=== PATIENT | female | born 2000 | race Hispanic/Latino ===

== ENCOUNTER 2019-12-19 17:21 | Observation (INO) | payer OTHER ==
[~2019-12-19] VITALS: Ht 150 cm; Wt 75.3 kg
[2019-12-19 17:54] LABS: APPEARANCE,URINE Clear (CLEAR); BILIRUBIN,URINE Negative (NEGATIVE); COLOR,URINE Yellow (YELLOW); GLUCOSE, URINE (UA) Negative (NEGATIVE); KETONES,URINE Negative (NEGATIVE); LEUKOCYTE ESTERASE ,URINE Moderate (NEGATIVE); NITRATE,URINE Negative (NEGATIVE); OCCULT BLOOD,URINE Negative (NEGATIVE); PH,URINE 7.5 (5.0-8.0); PROTEIN,URINE Negative (NEGATIVE)
[2019-12-19] MEDS ORDERED: LACTATED RINGERS 1000ML 1,000 ML IV PRN (18:18)
[2019-12-19 18:21] LABS: BACTERIA,URINE Rare /HPF (None Seen); SQUAMOUS EPITHELIAL CELL,UR Few /HPF (0-2)
[2019-12-19 18:38] LABS: HEMATOCRIT 33.1 % (36-48); MEAN CORPUSCULAR HGB CONC 30.5 g/dL (32.0-36.0); MEAN CORPUSCULAR VOLUME 72.1 fL (80-100); PLATELET COUNT (AUTO) 287 K/uL (130-400); RED BLOOD CELL COUNT(AUTO) 4.59 MIL/uL (4.00-5.50); RED CELL DISTRIBUTION WIDTH 16.2 % (11.0-15.5); WHITE BLOOD COUNT (AUTO) 10.9 K/uL (4.8-10.8)
[2019-12-19 18:49] LABS: CREATININE 0.5 mg/dL (0.5-1.5); POTASSIUM 3.6 mmol/L (3.5-5.1)
[2019-12-19 18:52] LABS: INR 0.91 (0.85-1.15); PARTIAL THROMBOPLASTIN TIME 27.5 SEC (26.3-35.5); PROTHROMBIN TIME 9.6 SEC (9.6-11.6)
[2019-12-19 18:54] LABS: ALBUMIN 2.8 g/dL (3.5-5.0); BILIRUBIN,TOTAL 0.1 mg/dL (0.2-1.0); TOTAL PROTEIN, SERUM 7.4 g/dL (6.0-8.3)
[2019-12-19 20:17] LABS: AMPHET/METH SCREEN,URINE NEGATIVE (NEGATIVE); BARBITURATE SCREEN, URINE NEGATIVE (NEGATIVE); BENZODIAZEPINES SCREEN,URINE NEGATIVE (NEGATIVE); CANNABINOID SCREEN,URINE NEGATIVE (NEGATIVE); COCAINE SCREEN,URINE NEGATIVE (NEGATIVE); OPIATE SCREEN,URINE NEGATIVE (NEGATIVE); PHENCYCLIDINE SCREEN,URINE NEGATIVE (NEGATIVE)
[2019-12-19] MEDS ORDERED: MAGNESIUM HYDROXIDE 30 ML/UDCUP PO SCH (22:15)
[2019-12-20 07:33] LABS: RAPID PLASMA REAGIN NONREACTIVE (NONREACTIVE)
[2019-12-23 10:11] LABS: HEPATITIS Bs ANTIGEN SCREEN P Negative (Negative)
== END 2019-12-19 23:45 | disposition home or self-care (01) ==
LOC: EDH 17:21 → LDH 17:22
PROVIDERS: ADMIT Specialist; ATTEND Specialist
DX: O62.9 Abnormality of forces of labor, unspecified (principal); Z3A.39 39 weeks gestation of pregnancy
CPT/HCPCS: 36415; 76705; 76805; 80053; 80305; 81001; 84550; 85027; 85384; 85610; 85730; 86592; 86701; 86850; 86900; 86901; 87340 ×2; 87390; 99284; G0378 ×6; 96360; 96361

== ENCOUNTER 2019-12-26 05:08 | Inpatient (IN) | payer OTHER ==
[~2019-12-26] VITALS: Ht 144.8 cm; Wt 80.7 kg
[2019-12-26] MEDS ORDERED: CEFAZOLIN SODIUM 1 GM VIAL ONE (05:55)
[2019-12-26 06:11] LABS: HEMATOCRIT 33.9 % (36-48); MEAN CORPUSCULAR HGB CONC 30.7 g/dL (32.0-36.0); MEAN CORPUSCULAR VOLUME 71.7 fL (80-100); PLATELET COUNT (AUTO) 307 K/uL (130-400); RED BLOOD CELL COUNT(AUTO) 4.73 MIL/uL (4.00-5.50); RED CELL DISTRIBUTION WIDTH 16.3 % (11.0-15.5); WHITE BLOOD COUNT (AUTO) 11.5 K/uL (4.8-10.8)
[2019-12-26] MEDS ORDERED: CEFAZOLIN SODIUM 1 GM VIAL IVP PRN (06:15)
[2019-12-26 06:17] LABS: APPEARANCE,URINE Clear (CLEAR); BILIRUBIN,URINE Negative (NEGATIVE); COLOR,URINE Yellow (YELLOW); GLUCOSE, URINE (UA) Negative (NEGATIVE); KETONES,URINE Trace mg/dL (NEGATIVE); LEUKOCYTE ESTERASE ,URINE Trace (NEGATIVE); NITRATE,URINE Negative (NEGATIVE); OCCULT BLOOD,URINE Negative (NEGATIVE); PH,URINE 7.5 (5.0-8.0); PROTEIN,URINE Negative (NEGATIVE)
[2019-12-26] MEDS ORDERED: LACTATED RINGERS 1000ML 1,000 ML IV ONE (06:19)
[2019-12-26 06:21] LABS: AMPHET/METH SCREEN,URINE NEGATIVE (NEGATIVE); BARBITURATE SCREEN, URINE NEGATIVE (NEGATIVE); BENZODIAZEPINES SCREEN,URINE NEGATIVE (NEGATIVE); CANNABINOID SCREEN,URINE NEGATIVE (NEGATIVE); COCAINE SCREEN,URINE NEGATIVE (NEGATIVE); OPIATE SCREEN,URINE NEGATIVE (NEGATIVE); PHENCYCLIDINE SCREEN,URINE NEGATIVE (NEGATIVE)
[2019-12-26] MEDS ORDERED: DURAMORPH PF1 MG/ML 10ML AMP IV ONE (06:24)
[2019-12-26] MEDS ORDERED: OXYTOCIN-LR 20 UNITS/1000 ML 2,000 ML IV ONE (06:31)
[2019-12-26 06:36] LABS: BACTERIA,URINE None Seen /HPF (None Seen); RBC,URINE 0-1 /HPF (0-1); SQUAMOUS EPITHELIAL CELL,UR Few /HPF (0-2); WBC,URINE 0-1 /HPF (0-1)
[2019-12-26] MEDS ORDERED: SODIUM CHLORIDE 0.9% 10 ML VIAL ONE (06:59)
[2019-12-26] MEDS ORDERED: PHENYLEPHRINE HCL 10 MG/ML 1ML VIAL IV ONE (06:59)
[2019-12-26] MEDS ORDERED: ONDANSETRON HCL 4 MG/2 ML VIAL ONE (07:01)
[2019-12-26] MEDS ORDERED: GLYCOPYRROLATE 1 MG/5 ML SYRINGE ONE (07:04)
[2019-12-26] MEDS ORDERED: PROMETHAZINE HCL 25 MG/ML 1ML AMPULE IM PRN (07:30)
[2019-12-26] MEDS ORDERED: OXYTOCIN-LR 20 UNITS/1000 ML 1,000 ML IV PRN (07:30)
[2019-12-26] MEDS ORDERED: MEPERIDINE-PF 75 MG/ML SYG IM PRN (07:30)
[2019-12-26] MEDS ORDERED: SODIUM CHLORIDE 0.9% 10 ML VIAL IVP PRN (07:30)
[2019-12-26] MEDS ORDERED: DEXTROSE 5 %-0.45 % NACL 1,000 ML IV PRN (07:30)
[2019-12-26 08:54] VITALS: BP 115/66
[2019-12-26] MEDS ORDERED: EPHEDRINE SULFATE 50 MG/ML AMPULE IVP PRN (11:00)
[2019-12-26] MEDS ORDERED: NALOXONE HCL 0.4 MG/1 ML ML IVP PRN ×3 (11:00)
[2019-12-26] MEDS ORDERED: DiphenhydrAMINE HCL 50 MG/ML VIAL IVP PRN (11:00)
[2019-12-26] MEDS: ONDANSETRON HCL 4 MG/2 ML VIAL IVP PRN ×2 (11:11→16:24)
[2019-12-26 11:19] VITALS: BP 102/59
--- NOTE | 2019-12-26 11:19 | NUR ---
IVY IN met with pt and her mother Debbie Conti [phone]. Pt states she lives with her mother and a friend Nessa Montano in [place]. Pt then mentioned she and HERMANN Salmonsus Louis Baltazar (30) live together in [facility] and this is second daughter for couple. 14month old Anne (born in [place]), and RODOLFO Elias. Pt states they will buy car seat before dc and she has not selected a green hide inspector after dc. Pt states she only saw an OB in [facility] in April 2019 and had no care the rest of . Pt denies hx of abuse, substance abuse, mental health, domestic violence, legal or CPS issues. SW called local CPS office and pt has no hx with CPS or open cases. Addendum: 12/26/19 at 1136 by IGNACIA IRAHETA Amended: Links added.
[2019-12-26] MEDS ORDERED: PREN-68 PO (11:40)
[2019-12-26 16:22] VITALS: BP 114/76
[2019-12-26 19:59] VITALS: BP 108/75
[2019-12-26] MEDS: DIPH,PERTUSS(ACELL),TET VAC/PF 0.5 ML VIAL IM SCH (21:47)
[2019-12-26] MEDS: MEASLES/MUMPS/RUBELLA VACCINE, LIVE 0.5 ML/VIAL SQ SCH (21:59)
[2019-12-26 23:40] VITALS: BP 99/51
[2019-12-27 03:40] VITALS: BP 90/51
[2019-12-27] MEDS: MEASLES/MUMPS/RUBELLA VACCINE, LIVE 0.5 ML/VIAL SQ SCH ×2 (03:58→20:34)
[2019-12-27] MEDS: DIPH,PERTUSS(ACELL),TET VAC/PF 0.5 ML VIAL IM SCH ×2 (03:58→20:34)
--- NOTE | 2019-12-27 06:25 | NUR ---
PRADEEP COUGHLIN PT. INST TO CALL FOR ASSIST BEFORE GETTING OUT OF BED, VERBALIZED UNDERSTANDING. Addendum: 12/27/19 at 0637 by NIKOS MOTTA RN RN Amended: Links added.
[2019-12-27 06:26] LABS: HEMATOCRIT 26.2 % (36-48); MEAN CORPUSCULAR HEMOGLOBIN 21.9 pg (27.0-33.0); MEAN CORPUSCULAR HGB CONC 30.2 g/dL (32.0-36.0); MEAN CORPUSCULAR VOLUME 72.6 fL (80-100); PLATELET COUNT (AUTO) 257 K/uL (130-400); RED BLOOD CELL COUNT(AUTO) 3.61 MIL/uL (4.00-5.50); RED CELL DISTRIBUTION WIDTH 16.1 % (11.0-15.5); WHITE BLOOD COUNT (AUTO) 11.7 K/uL (4.8-10.8)
[2019-12-27 07:27] VITALS: BP 94/49
[2019-12-27] MEDS: IBUPROFEN 800 MG TAB PO SCH ×3 (07:34→23:26)
[2019-12-27] MEDS ORDERED: BISACODYL 10 MG SUPP.RECT RC PRN (08:45)
[2019-12-27] MEDS ORDERED: ACETAMINOPHEN EXTRA STRENGTH 500 MG TABLET PO PRN (08:45)
[2019-12-27] MEDS ORDERED: HYDROCODONE/ACETAMINOPHEN 5/325 MG TAB PO PRN (08:45)
[2019-12-27] MEDS ORDERED: ACETAMINOPHEN-CODEINE 300/30MG TAB PO PRN (08:45)
[2019-12-27] MEDS: DOCUSATE SODIUM 100 MG CAP PO SCH ×2 (08:54→20:52)
[2019-12-27 11:23] VITALS: BP 95/51
[2019-12-27] MEDS: SIMETHICONE 80 MG TAB.CHEW PO PRN ×3 (15:18→20:52)
[2019-12-27 16:37] VITALS: BP 97/54
[2019-12-27 19:40] VITALS: BP 98/59
[2019-12-27 23:44] VITALS: BP 90/49
[2019-12-28 03:19] VITALS: BP 105/61
[2019-12-28] MEDS: IBUPROFEN 800 MG TAB PO SCH (07:15)
[2019-12-28 07:34] VITALS: BP 92/63
[2019-12-28] MEDS: DOCUSATE SODIUM 100 MG CAP PO SCH (08:31)
[2019-12-28] MEDS: SIMETHICONE 80 MG TAB.CHEW PO PRN (08:31)
--- NOTE | 2019-12-28 11:30 | NUR ---
David AGUIRRE CNM ROUNDED AND DISCHARGED PATIENT TO HOME. PATIENT TO FOLLOW UP WITH DR. BROCK SCHEDULED.
[2019-12-28 11:50] VITALS: BP 94/54
--- NOTE | 2019-12-28 13:45 | NUR ---
PATIENT WAS GIVEN DISCHARGE INSTRUCTIONS AND SCRIPT FOR HOME PAIN MANAGEMENT ISSUED AND INSTRUCTED ON DOSAGE AND FREQUENCY OF MEDS. PATIENT DENIES PAIN AT THIS TIME. INCISION WITH CONCHA OPEN TO AIR AND INCISIONAL CARE REINFORCED AT THIS TIME.
--- NOTE | 2019-12-28 14:00 | NUR ---
PATIENT WAS TAKEN VIA W/C TO FAMILY VEHICLE CARRYING BABY IN ARMS. PATIENT AND BABY DISCHARGED TO SPOUSE IN STABLE CONDITION. Addendum: 12/28/19 at 1410 by BENI DOWLING RN CHARTED IN ERROR ON WRONG PATIENT
--- NOTE | 2019-12-28 14:19 | NUR ---
PATIENT WAS TAKEN VIA W/C CARRYING BABY IN ARMS TO FAMILY VEHICLE AND WAS DISCHARGED TO HER MOTHER. PATIENT AND BABY STABLE.
== END 2019-12-28 14:19 | disposition home or self-care (01) | DRG 788 ==
LOC: EDH 05:08 → LDH 05:09 → OBSVTOIN 05:09 → WSH 08:50
PROVIDERS: ADMIT Specialist; ATTEND Specialist
PROC: 3E0234Z Introduction of Serum, Toxoid and Vaccine into Muscle, Percutaneous Approach (ICD-10-PCS; 2019-12-26)
PROC: 3E0134Z Introduction of Serum, Toxoid and Vaccine into Subcutaneous Tissue, Percutaneous Approach (ICD-10-PCS; 2019-12-26)
PROC: 10D00Z1 Extraction of Products of Conception, Low, Open Approach (ICD-10-PCS; principal; 2019-12-26 06:45)
DX: O34.211 Maternal care for low transverse scar from previous cesarean delivery (principal); Z3A.38 38 weeks gestation of pregnancy; Z37.0 Single live birth; Z23 Encounter for immunization
CPT/HCPCS: 36415; 59510; 80305; 81001; 85027; 86762; 86850; 86900; 86901; 90707; 90715; A4344; G0378; J0690; J2274; J2370; J2405; J2590; J3490; J7120

== ENCOUNTER 2020-01-06 20:18 | Inpatient (IN) | payer MEDICAID, OTHER ==
[~2020-01-06] VITALS: Ht 152.4 cm; Wt 70.8 kg
[~2020-01-06 20:18] MED LIST: PREN-68 PO
[2020-01-06 21:10] LABS: BASOPHILS % (AUTO) 0.3 % (0.0-5.0); EOSINOPHILS % (AUTO) 0.3 % (0.0-8.0); HEMATOCRIT 28.2 % (36-48); LYMPHOCYTES % (AUTO) 16.4 % (21.0-51.0); MEAN CORPUSCULAR HEMOGLOBIN 22.2 pg (27.0-33.0); MEAN CORPUSCULAR HGB CONC 30.5 g/dL (32.0-36.0); MEAN CORPUSCULAR VOLUME 72.7 fL (80-100); MONOCYTES % (AUTO) 4.2 % (3.0-13.0); PLATELET COUNT (AUTO) 601 K/uL (130-400); RED BLOOD CELL COUNT(AUTO) 3.88 MIL/uL (4.00-5.50); WHITE BLOOD COUNT (AUTO) 24.6 K/uL (4.8-10.8)
[2020-01-06] MEDS ORDERED: ONDANSETRON HCL 4 MG/2 ML VIAL ONE (21:13)
[2020-01-06] MEDS ORDERED: MORPHINE SULFATE 2 MG/ML 1ML SYG ONE (21:14)
[2020-01-06 21:37] LABS: POTASSIUM 3.4 mmol/L (3.5-5.1)
[2020-01-06 21:43] LABS: INR 0.96 (0.85-1.15); PARTIAL THROMBOPLASTIN TIME 25.7 SEC (26.3-35.5); PROTHROMBIN TIME 10.4 SEC (9.6-11.6)
[2020-01-06 21:44] LABS: B-TYPE NATRIURETIC PEPTIDE < 5 pg/mL (0-100)
[2020-01-06 21:55] LABS: ALBUMIN 2.9 g/dL (3.5-5.0); BILIRUBIN,TOTAL 0.1 mg/dL (0.2-1.0); TOTAL PROTEIN, SERUM 7.3 g/dL (6.0-8.3)
[2020-01-06] MEDS ORDERED: IOHEXOL-350 75 ML VIAL IV ONE (21:55)
[2020-01-06] MEDS ORDERED: ZOSYN 3.375GM+NS 50ML 50 ML IV ONE (22:44)
[2020-01-06] MEDS ORDERED: SODIUM CHLORIDE 0.9% 1000ML 1,000 ML IV ONE (23:21)
[2020-01-07] MEDS ORDERED: SODIUM CHLORIDE 0.9% 250 ML IV ONE (01:05)
[2020-01-07] MEDS ORDERED: CLINDAMYCIN 900 MG/D5% WATER 50 ML IV ONE (02:00)
[2020-01-07] MEDS ORDERED: LACTATED RINGERS 1000ML 1,000 ML IV ONE ×2 (02:01→02:14)
[2020-01-07] MEDS ORDERED: MEPERIDINE-PF 50 MG/ML SYG ONE (02:01)
[2020-01-07] MEDS ORDERED: METHYLERGONOVINE MALEATE 0.2 MG/1 ML ML ONE (02:14)
[2020-01-07] MEDS ORDERED: TRANEXAMIC ACID 1000MG/10ML ONE (02:14)
[2020-01-07 03:20] VITALS: BP 109/59
[2020-01-07] MEDS ORDERED: MEPERIDINE-PF 50 MG/ML SYG IM PRN ×2 (03:45→04:00)
[2020-01-07] MEDS ORDERED: PROMETHAZINE HCL 25 MG/ML 1ML AMPULE IM PRN ×2 (03:45→04:00)
[2020-01-07] MEDS ORDERED: ACETAMINOPHEN EXTRA STRENGTH 500 MG TABLET PO PRN ×2 (03:45→04:00)
[2020-01-07] MEDS ORDERED: PHARMACY COMMUNICATION MISC SCH (03:45)
[2020-01-07] MEDS ORDERED: IBUPROFEN 800 MG TAB PO PRN (03:45)
[2020-01-07] MEDS ORDERED: LACTATED RINGERS 1000ML 1,000 ML IV SCH (04:00)
[2020-01-07] MEDS ORDERED: GENTAMICIN SULFATE 120 MG in SODIUM CHLORIDE 0.9% 100 ML IV SCH (04:00)
[2020-01-07 04:58] LABS: APPEARANCE,URINE Clear (CLEAR); BILIRUBIN,URINE Negative (NEGATIVE); COLOR,URINE Yellow (YELLOW); GLUCOSE, URINE (UA) Negative (NEGATIVE); KETONES,URINE Negative (NEGATIVE); LEUKOCYTE ESTERASE ,URINE Negative (NEGATIVE); NITRATE,URINE Negative (NEGATIVE); OCCULT BLOOD,URINE Moderate (NEGATIVE); PROTEIN,URINE Negative (NEGATIVE); UROBILINOGEN,URINE 0.2 mg/dL (0.2-1.0)
[2020-01-07 05:07] LABS: RBC,URINE 26-50 /HPF (0-1); WBC,URINE 0-1 /HPF (0-1)
[2020-01-07 05:08] LABS: BACTERIA,URINE Rare /HPF (None Seen)
[2020-01-07] MEDS ORDERED: IBUP-2077 PO (06:12)
[2020-01-07 06:31] LABS: HEMATOCRIT 24.2 % (36-48); MEAN CORPUSCULAR HEMOGLOBIN 23.2 pg (27.0-33.0); MEAN CORPUSCULAR HGB CONC 31.4 g/dL (32.0-36.0); MEAN CORPUSCULAR VOLUME 73.8 fL (80-100); PLATELET COUNT (AUTO) 383 K/uL (130-400); RED BLOOD CELL COUNT(AUTO) 3.28 MIL/uL (4.00-5.50); RED CELL DISTRIBUTION WIDTH 16.8 % (11.0-15.5); WHITE BLOOD COUNT (AUTO) 15.1 K/uL (4.8-10.8)
[2020-01-07 06:44] LABS: ALBUMIN 2.4 g/dL (3.5-5.0); BILIRUBIN,TOTAL 0.1 mg/dL (0.2-1.0); CREATININE 0.6 mg/dL (0.5-1.5); POTASSIUM 3.8 mmol/L (3.5-5.1)
[2020-01-07 07:40] VITALS: BP 96/52
--- NOTE | 2020-01-07 08:30 | NUR ---
QBL QBL IS 7MLS. PT PREVIOUSLY VOIDED AND NO CLOTS NOTED.
[2020-01-07] MEDS ORDERED: CLINDAMYCIN 900 MG/D5% WATER 50 ML IV SCH (10:10)
--- NOTE | 2020-01-07 10:10 | NUR ---
QBL QBL IS 6MLS. NO CLOTS PRESENT AT THIS TIME.
[2020-01-07] MEDS: CLINDAMYCIN 900 MG/D5% WATER 50 ML IV SCH ×2 (10:37→17:33)
[2020-01-07 11:15] VITALS: BP 90/47
[2020-01-07] MEDS ORDERED: GENTAMICIN SULFATE 80 MG in SODIUM CHLORIDE 0.9% 100 ML IV SCH (12:00)
[2020-01-07] MEDS: GENTAMICIN 80 MG/NS 100 ML PB 100 ML IV SCH ×2 (13:06→20:18)
[2020-01-07] MEDS: LACTATED RINGERS 1000ML 1,000 ML IV SCH ×3 (13:07→23:59)
[2020-01-07] MEDS ORDERED: GENTAMICIN 80 MG/NS 100 ML PB 100 ML IV SCH (15:00)
--- NOTE | 2020-01-07 15:40 | NUR ---
ROUNDING DR. COREY AT BEDSIDE TO ASSESS AND TALK TO PT. POC DISCUSSED TO CONTINUE TO MONITOR PT'S BLEEDING OVER NIGHT. PT VERBALIZED UNDERSTANDING.
[2020-01-07 16:34] VITALS: BP 93/55
--- NOTE | 2020-01-07 17:00 | NUR ---
PT ACTIVITY PT AMBULATING IN HALLWAY, INSTRUCTED BY DR. COREY, AND TOLERATING WELL. NO COMPLAINTS OF PAIN OR DIZZINESS AT THIS TIME.
--- NOTE | 2020-01-07 17:26 | NUR ---
CM NOTE MEET WITH PATIENT IN ROOM. PER PATIENT, LIVES WITH FRIEND AND HER FRIENDS KIDS (1 MINOR/1 ADULT), IS INDEPENDENT WITH ADLS, NO USE OF DME, NO HH OR PROVIDER SERVICES, AND FEELS SAFE TO RETURN HOME AFTER HOSPITAL DISCHARGE. Addendum: 01/07/20 at 1728 by ASHA MARTÍNEZ RN CM Amended: Links added.
--- NOTE | 2020-01-07 17:30 | NUR ---
CONCHA/QBL 2 CONCHA REMOVED FROM LEFT SIDE OF INCISION PER DR. COREY'S ORDERS. PT JUST CHANGED PAD AND HAD QBL OF 7 MLS. PT STATED HAD PASSED BLOOD BLOT IN BATHROOM. GOLF BALL-SIZED CLOT NOTED. PT DENIED DIZZINESS AT THIS TIME.
[2020-01-07 19:44] VITALS: BP 97/56
--- NOTE | 2020-01-07 20:00 | NUR ---
Activity: Patient ambulating in the hallway for 10 minutes tolerated it well. was back to her room voided with royal colored urine noted with small blood clots a quarter size. Plan of care discussed with patient verbalizes understanding.
[2020-01-07] MEDS: IBUPROFEN 800 MG TAB PO PRN (20:18)
[2020-01-07 23:49] VITALS: BP 99/58
[2020-01-08] MEDS: CLINDAMYCIN 900 MG/D5% WATER 50 ML IV SCH ×2 (01:58→08:48)
--- NOTE | 2020-01-08 02:00 | NUR ---
Patient urine; Patient urine noted with small amount of bloody tissues very small clots smaller like a dime.
[2020-01-08 03:54] VITALS: BP 91/57
[2020-01-08] MEDS: GENTAMICIN 80 MG/NS 100 ML PB 100 ML IV SCH (03:57)
[2020-01-08 05:55] LABS: BASOPHILS % (AUTO) 0.6 % (0.0-5.0); EOSINOPHILS % (AUTO) 0.6 % (0.0-8.0); MEAN CORPUSCULAR HEMOGLOBIN 23.4 pg (27.0-33.0); MEAN CORPUSCULAR HGB CONC 31.2 g/dL (32.0-36.0); MEAN CORPUSCULAR VOLUME 75.1 fL (80-100); MONOCYTES % (AUTO) 6.9 % (3.0-13.0); NEUTROPHILS % (AUTO) 68.5 % (40.0-77.0); PLATELET COUNT (AUTO) 377 K/uL (130-400); RED BLOOD CELL COUNT(AUTO) 3.46 MIL/uL (4.00-5.50); RED CELL DISTRIBUTION WIDTH 17.4 % (11.0-15.5); WHITE BLOOD COUNT (AUTO) 6.9 K/uL (4.8-10.8)
[2020-01-08 07:19] VITALS: BP 102/62
--- NOTE | 2020-01-08 07:40 | NUR ---
ASSESSMENT PT HAD SCANT VAGINAL BLEEDING ON PAD. STATED BLEEDING HAS GOTTEN CRYSTAL CUTTER OVER NIGHT. NO COMPLAINTS AT THIS TIME.
--- NOTE | 2020-01-08 08:50 | NUR ---
ROUNDING DR. COREY AT BEDSIDE TO ASSESS AND TALK TO PT. PT REPORTS IS FEELING BETTER AND BLEEDING IS MAPPER. POC DISCUSSED WITH PT TO BE DISCHARGED HOME. DR. COREY INFORMED PT OF PRESCRIBING METHERGINE PO TO CONTINUE TO TAKE AT HOME AND IMPORTANCE OF FINISHING THE COURSE, AND TO COME BACK TO HOSPITAL IF HEAVY BLEEDING RETURNS AND IS NEEDING TO CHANGE PADS EVERY 20 MINUTES TO AN HOUR. PT VERBALIZED UNDERSTANDING.
[2020-01-08] MEDS: IBUPROFEN 800 MG TAB PO PRN (10:44)
--- NOTE | 2020-01-08 11:00 | NUR ---
DISCHARGE PT LEFT UNIT VIA WHEELCHAIR, ACCOMPANIED BY MOTHER. DENIED PAIN AND HAD NO COMPLAINTS OF HEAVY BLEEDING. PT TRANSPORTED BY PERSONAL VEHICLE.
== END 2020-01-08 12:21 | disposition home or self-care (01) | DRG 776 ==
LOC: EDH 20:18 → EDHIP 20:19 → WSH 01-07 01:52
PROVIDERS: ADMIT Specialist; ATTEND Specialist
PROC: 30233N1 Transfusion of Nonautologous Red Blood Cells into Peripheral Vein, Percutaneous Approach (ICD-10-PCS; principal; 2020-01-06)
DX: O72.1 Other immediate postpartum hemorrhage (principal)
CPT/HCPCS: 36415; 71045; 74177; 76856; 80053; 80170; 81001; 83605; 83880; 84145; 84484; 85025; 85027; 85610; 85730; 86850; 86900; 86901; 86922; 87040; 87077; 87088; 87186; 93005; G0378; J1580; J2175; J2210; J2405; J2543; J3490; J7030; J7120; P9016; Q9967

== ENCOUNTER 2020-01-08 12:21 | Inpatient (IN) | payer OTHER ==
[~2020-01-08] VITALS: Ht 157.5 cm; Wt 68.0 kg
[2020-01-08] VITALS (18 sets, daily range): BP systolic 90–128; BP diastolic 50–65
[~2020-01-08 12:21] MED LIST changes: +IBUP-2077 PO
[2020-01-08] MEDS ORDERED: MISOPROSTOL 200 MCG TABLET ONE (12:24)
[2020-01-08] MEDS ORDERED: TRANEXAMIC ACID 1000MG/10ML ONE ×2 (12:25→12:27)
--- NOTE | 2020-01-08 12:35 | NUR ---
QBL IN ER 123 MLS
[2020-01-08 12:38] LABS: ABG HCO3 17.4 mmol/L (21.0-28.0); ABG OXYGEN SATURATION 98.2 % (95.0-99.0); ABG PCO2 23 mmHg (32-45)
[2020-01-08] MEDS ORDERED: FENTANYL CITRATE PF 50 MCG/1 ML 2ML VIAL ONE ×3 (12:49→15:06)
[2020-01-08 12:52] LABS: BASOPHILS % (AUTO) 0.4 % (0.0-5.0); EOSINOPHILS % (AUTO) 0.3 % (0.0-8.0); HEMATOCRIT 21.3 % (36-48); LYMPHOCYTES % (AUTO) 16.1 % (21.0-51.0); MEAN CORPUSCULAR HEMOGLOBIN 23.8 pg (27.0-33.0); MEAN CORPUSCULAR HGB CONC 31.9 g/dL (32.0-36.0); MEAN CORPUSCULAR VOLUME 74.5 fL (80-100); MONOCYTES % (AUTO) 3.4 % (3.0-13.0); NEUTROPHILS % (AUTO) 78.4 % (40.0-77.0); PLATELET COUNT (AUTO) 355 K/uL (130-400); RED BLOOD CELL COUNT(AUTO) 2.86 MIL/uL (4.00-5.50); RED CELL DISTRIBUTION WIDTH 17.2 % (11.0-15.5); WHITE BLOOD COUNT (AUTO) 7.6 K/uL (4.8-10.8)
[2020-01-08] MEDS ORDERED: PROPOFOL 10 MG/ML 20ML VIAL IV ONE (12:53)
[2020-01-08] MEDS ORDERED: LIDOCAINE PF 2% 5ML ABBOJECT ONE ×2 (12:53→14:44)
[2020-01-08] MEDS ORDERED: ROCURONIUM 10MG/1ML SYR 10 MG/ML ML ONE (12:53)
[2020-01-08] MEDS ORDERED: SUCCINYLCHOLINE CHLORIDE 20 MG/ML 10 ML VIAL ONE (12:53)
[2020-01-08 12:57] LABS: INR 0.99 (0.85-1.15); PARTIAL THROMBOPLASTIN TIME 28.5 SEC (26.3-35.5); PROTHROMBIN TIME 10.7 SEC (9.6-11.6)
[2020-01-08 13:01] LABS: ALBUMIN 2.5 g/dL (3.5-5.0); BILIRUBIN,TOTAL 0.2 mg/dL (0.2-1.0); CREATININE 0.6 mg/dL (0.5-1.5); TOTAL PROTEIN, SERUM 6.1 g/dL (6.0-8.3)
[2020-01-08 13:07] LABS: POTASSIUM 2.9 mmol/L (3.5-5.1)
[2020-01-08] MEDS ORDERED: MIDAZOLAM HCL 1 MG/ML 2ML VIAL ONE (13:08)
--- NOTE | 2020-01-08 13:15 | NUR ---
QBL PRIOR TO OR 157 MLS
[2020-01-08] MEDS ORDERED: PHENYLEPHRINE HCL 10 MG/ML 1ML VIAL IV ONE (13:21)
[2020-01-08] MEDS ORDERED: CEFTRIAXONE SODIUM 1 GM ONE (13:35)
[2020-01-08] MEDS ORDERED: OXYTOCIN 10 USP UNITS/ML ONE (14:02)
[2020-01-08] MEDS ORDERED: MEPERIDINE-PF 25 MG/ML SYG ONE (14:20)
[2020-01-08] MEDS ORDERED: NEOSTIGMINE 5MG/5ML SYR IV ONE (14:26)
[2020-01-08] MEDS ORDERED: GLYCOPYRROLATE 1 MG/5 ML SYRINGE ONE (14:26)
[2020-01-08] MEDS ORDERED: ONDANSETRON HCL 4 MG/2 ML VIAL ONE (14:30)
[2020-01-08] MEDS ORDERED: EPHEDRINE SULFATE 50 MG/ML AMPULE ONE (14:53)
[2020-01-08 14:56] LABS: BASOPHILS % (AUTO) 0.4 % (0.0-5.0); EOSINOPHILS % (AUTO) 0.1 % (0.0-8.0); HEMATOCRIT 30.2 % (36-48); LYMPHOCYTES % (AUTO) 9.3 % (21.0-51.0); MEAN CORPUSCULAR HEMOGLOBIN 26.3 pg (27.0-33.0); MEAN CORPUSCULAR HGB CONC 31.8 g/dL (32.0-36.0); MEAN CORPUSCULAR VOLUME 82.7 fL (80-100); MONOCYTES % (AUTO) 4.8 % (3.0-13.0); NEUTROPHILS % (AUTO) 82.6 % (40.0-77.0); NUCLEATED RED BLOOD CELLS 0.2 % (0.0-0.19); PLATELET COUNT (AUTO) 222 K/uL (130-400); RED BLOOD CELL COUNT(AUTO) 3.65 MIL/uL (4.00-5.50); RED CELL DISTRIBUTION WIDTH 18.7 % (11.0-15.5); WHITE BLOOD COUNT (AUTO) 16.3 K/uL (4.8-10.8)
[2020-01-08 15:09] LABS: BILIRUBIN,TOTAL 0.4 mg/dL (0.2-1.0); TOTAL PROTEIN, SERUM 4.5 g/dL (6.0-8.3)
[2020-01-08] MEDS ORDERED: BISACODYL 10 MG SUPP.RECT RC PRN (15:45)
[2020-01-08] MEDS ORDERED: SIMETHICONE 80 MG TAB.CHEW PO PRN (15:45)
[2020-01-08] MEDS ORDERED: DOCUSATE SODIUM 100 MG CAP PO PRN (15:45)
[2020-01-08] MEDS ORDERED: ONDANSETRON HCL 4 MG/2 ML VIAL IVP PRN (15:45)
[2020-01-08] MEDS ORDERED: MEPERIDINE-PF 75 MG/ML SYG IM PRN (15:45)
[2020-01-08] MEDS ORDERED: PROMETHAZINE HCL 25 MG/ML 1ML AMPULE IM PRN ×2 (15:45)
[2020-01-08 16:17] LABS: CREATININE 0.5 mg/dL (0.5-1.5); POTASSIUM 3.6 mmol/L (3.5-5.1)
[2020-01-08] MEDS ORDERED: MEPERIDINE-PF 100 MG/ML SYG ONE (16:36)
[2020-01-08 16:49] LABS: AMPHET/METH SCREEN,URINE NEGATIVE (NEGATIVE); BARBITURATE SCREEN, URINE NEGATIVE (NEGATIVE); BENZODIAZEPINES SCREEN,URINE POSITIVE (NEGATIVE); CANNABINOID SCREEN,URINE NEGATIVE (NEGATIVE); COCAINE SCREEN,URINE NEGATIVE (NEGATIVE); OPIATE SCREEN,URINE NEGATIVE (NEGATIVE); PHENCYCLIDINE SCREEN,URINE NEGATIVE (NEGATIVE)
[2020-01-08] MEDS: ACETAMINOPHEN-CODEINE 300/30MG TAB PO PRN ×2 (18:52→23:33)
[2020-01-08] MEDS ORDERED: MEPERIDINE-PF 100 MG/ML SYG IM PRN (19:00)
[2020-01-08] MEDS: DEXTROSE 5 %-0.45 % NACL 1,000 ML IV PRN (19:03)
[2020-01-08] MEDS: PHENAZOPYRIDINE HCL 200 MG TABLET PO SCH (21:34)
[2020-01-09 00:35] LABS: HEMATOCRIT 28.2 % (36-48); MEAN CORPUSCULAR HEMOGLOBIN 26.8 pg (27.0-33.0); MEAN CORPUSCULAR HGB CONC 33.7 g/dL (32.0-36.0); MEAN CORPUSCULAR VOLUME 79.4 fL (80-100); PLATELET COUNT (AUTO) 226 K/uL (130-400); RED BLOOD CELL COUNT(AUTO) 3.55 MIL/uL (4.00-5.50); RED CELL DISTRIBUTION WIDTH 18.6 % (11.0-15.5)
[2020-01-09] MEDS: DEXTROSE 5 %-0.45 % NACL 1,000 ML IV PRN ×3 (03:02→18:21)
[2020-01-09 03:34] VITALS: BP 112/68
[2020-01-09] MEDS: ACETAMINOPHEN-CODEINE 300/30MG TAB PO PRN ×3 (05:46→15:37)
--- NOTE | 2020-01-09 06:05 | NUR ---
PT. SAT AT BEDSIDE BY BENY AND DANGLED FOR 7 MINUTES. DENIED DISCOMFORT. NO VAGINAL BLEEDING NOTED AT THIS TIME.
[2020-01-09 07:14] LABS: HEMATOCRIT 23.7 % (36-48); MEAN CORPUSCULAR HGB CONC 34.2 g/dL (32.0-36.0); NUCLEATED RED BLOOD CELLS 0.2 % (0.0-0.19); PLATELET COUNT (AUTO) 227 K/uL (130-400); RED CELL DISTRIBUTION WIDTH 18.6 % (11.0-15.5); WHITE BLOOD COUNT (AUTO) 8.9 K/uL (4.8-10.8)
[2020-01-09 07:41] VITALS: BP 102/52
[2020-01-09] MEDS: PHENAZOPYRIDINE HCL 200 MG TABLET PO SCH ×3 (08:37→21:46)
[2020-01-09] MEDS: CEFTRIAXONE SODIUM 1 GM IV SCH (08:37)
[2020-01-09] MEDS ORDERED: HYDROCODONE/ACETAMINOPHEN 5/325 MG TAB PO PRN (10:30)
[2020-01-09] MEDS ORDERED: GENTAMICIN PROTOCOL PER PHARMACY IV SCH (10:30)
--- NOTE | 2020-01-09 10:45 | NUR ---
chau catheter removed, tip intact, abdominal dressing changed, incision is dry and intact with chantelle, applied abdominal binder, assisted to bedside chair, pt tolerated well. Addendum: 01/09/20 at 1359 by MARQUIS BATES RN Amended: Links added.
[2020-01-09] MEDS: CLINDAMYCIN 900 MG/D5% WATER 50 ML IV SCH ×2 (10:52→18:14)
[2020-01-09 11:40] VITALS: BP 110/55
[2020-01-09] MEDS: IBUPROFEN 800 MG TAB PO SCH ×3 (11:43→23:04)
[2020-01-09 11:49] LABS: APPEARANCE,URINE Clear (CLEAR); BILIRUBIN,URINE Negative (NEGATIVE); COLOR,URINE Dark Yellow (YELLOW); GLUCOSE, URINE (UA) Negative (NEGATIVE); KETONES,URINE Negative (NEGATIVE); LEUKOCYTE ESTERASE ,URINE Negative (NEGATIVE); NITRATE,URINE Positive (NEGATIVE); OCCULT BLOOD,URINE Nonhemolyzed Trace (NEGATIVE); PROTEIN,URINE Negative (NEGATIVE); UROBILINOGEN,URINE 0.2 mg/dL (0.2-1.0)
[2020-01-09 12:16] LABS: BACTERIA,URINE Rare /HPF (None Seen); RBC,URINE 0-1 /HPF (0-1); SQUAMOUS EPITHELIAL CELL,UR Rare /HPF (0-2); WBC,URINE 0-1 /HPF (0-1)
--- NOTE | 2020-01-09 14:45 | NUR ---
CM NOTE MEET WITH PATIENT IN ROOM. PER PATIENT, LIVES WITH FRIEND AND HER FRIENDS KIDS (1 MINOR/1 ADULT), IS INDEPENDENT WITH ADLS, NO USE OF DME, NO HH OR PROVIDER SERVICES, AND FEELS SAFE TO RETURN HOME AFTER HOSPITAL DISCHARGE. READMISSION DUE TO VAGINAL HEMORRHAGE. SELF REFERRAL PACKET GIVEN TO PATIENT, STATES SHE STILL HAS THE LAST ONE I GAVE TO HER FOR PRIOR ADMISSION ON 01/06/20. PATIENT VERBALIZED UNDERSTANDING OF PACKET.
[2020-01-09 15:49] VITALS: BP 103/52
[2020-01-09 19:36] VITALS: BP 100/49
[2020-01-09] MEDS ORDERED: BENZOCAINE/MENTH/CETYLPYRD CL 1 EACH LOZENGE MM PRN (21:45)
[2020-01-10] VITALS (7 sets, daily range): BP systolic 86–110; BP diastolic 47–68
[2020-01-10] MEDS: ACETAMINOPHEN-CODEINE 300/30MG TAB PO PRN (00:37)
[2020-01-10] MEDS: CLINDAMYCIN 900 MG/D5% WATER 50 ML IV SCH ×3 (02:54→18:22)
[2020-01-10] MEDS: DEXTROSE 5 %-0.45 % NACL 1,000 ML IV PRN ×2 (02:57→10:15)
[2020-01-10] MEDS: IBUPROFEN 800 MG TAB PO SCH ×3 (05:00→18:23)
--- NOTE | 2020-01-10 06:42 | NUR ---
Pt denies pain or discomfort at present. Encouraging use of IS; pt complying & reaching 3000ml Addendum: 01/10/20 at 0745 by ROCIO SOLOMON RN RN Amended: Links added.
[2020-01-10] MEDS: CEFTRIAXONE SODIUM 1 GM IV SCH (09:12)
[2020-01-10] MEDS: DOCUSATE SODIUM 100 MG CAP PO PRN ×2 (09:12→20:31)
[2020-01-10] MEDS: PHENAZOPYRIDINE HCL 200 MG TABLET PO SCH ×3 (09:12→20:30)
--- NOTE | 2020-01-10 10:00 | NUR ---
PATIENT UP AMBULATING IN HALLWAY WITH HER MOTHER AND TOLERATING ACTIVITY WELL. ENCOURAGED PATIENT IMPORTANCE OF AMBULATING IN HALLWAY.
--- NOTE | 2020-01-10 12:30 | NUR ---
DR. SANCHEZ CALLED AND STATUS UPDATE GIVEN ON PATIENT. PATIENT HAS REMAINED AFEBRILE AND ANTIBIOTICS TO CONTINUE THROUGH WEEKEND AND POSSIBLE DISCHARGE ON SUNDAY. ORDER GIVEN FOR REMOVAL OF DRESSING TO ABDOMEN AND APPLY DRESSING TO SOLIS DRAIN. 20CC OF SEROSANGUINEOUS FLUID DRAINED AND DISCHARGED. URINE IS DARK ORANGE FROM PYRIDIUM.
--- NOTE | 2020-01-10 14:00 | NUR ---
PATIENT UP AND VOIDED 950CC OF DARK ORANGE WITH BLOOD TINGE URINE AND PASSED A MINTO SIZE CLOT. PATIENT ENCOURAGED TO TRY TO EMPTY BLADDER MORE FREQUENTLY.
[2020-01-10 14:53] LABS: BASOPHILS % (AUTO) 0.4 % (0.0-5.0); EOSINOPHILS % (AUTO) 4.1 % (0.0-8.0); HEMATOCRIT 22.8 % (36-48); LYMPHOCYTES % (AUTO) 41.8 % (21.0-51.0); MEAN CORPUSCULAR HEMOGLOBIN 26.3 pg (27.0-33.0); MEAN CORPUSCULAR HGB CONC 33.3 g/dL (32.0-36.0); MEAN CORPUSCULAR VOLUME 78.9 fL (80-100); MONOCYTES % (AUTO) 11.2 % (3.0-13.0); NEUTROPHILS % (AUTO) 41.2 % (40.0-77.0); PLATELET COUNT (AUTO) 289 K/uL (130-400); RED BLOOD CELL COUNT(AUTO) 2.89 MIL/uL (4.00-5.50); RED CELL DISTRIBUTION WIDTH 18.5 % (11.0-15.5); WHITE BLOOD COUNT (AUTO) 4.7 K/uL (4.8-10.8)
[2020-01-10 15:12] LABS: BILIRUBIN,TOTAL 0.1 mg/dL (0.2-1.0); CREATININE 0.6 mg/dL (0.5-1.5); POTASSIUM 3.1 mmol/L (3.5-5.1); TOTAL PROTEIN, SERUM 5.4 g/dL (6.0-8.3)
[2020-01-10] MEDS ORDERED: POTASSIUM CHLORIDE 10% ELIXIR 20 MEQ/15 ML UDCUP PO PRN (15:45)
[2020-01-10] MEDS ORDERED: POTASSIUM CHLORIDE 20MEQ/100ML 100 ML IV PRN (15:45)
--- NOTE | 2020-01-10 15:45 | NUR ---
DR. SANCHEZ RETURNED CALL AND WAS MADE AWARE OF PATIENT'S LATEST LAB RESULTS. CBC AND CMP ORDERED FOR A.M. AND WAS OKAY WITH LOWERING INFUSION RATE OF D5 1/2NS TO 50CC/HR. MYLICON ALSO CHANGED TO PC/HS. PATIENT IS STABLE BUT HER H/H HAVE BEEN SLOWING DECREASING. DR. SANCHEZ WAS ALSO MADE AWARE OF SMALL CLOT PATIENT PASSED AFTER HAVING WALKED THIS MORNING WHICH WAS THE SIZE OF A REGULAR JENA.
[2020-01-10] MEDS: SIMETHICONE 80 MG TAB.CHEW PO PRN ×3 (16:12→20:30)
[2020-01-10] MEDS: POTASSIUM CHLORIDE 20 MEQ ERTAB PO PRN ×3 (16:15→20:31)
--- NOTE | 2020-01-10 18:30 | NUR ---
PATIENT TOOK SHOWER AND DRESSING CHANGE DONE TO SITE. PATIENT STABLE.
--- NOTE | 2020-01-10 19:15 | NUR ---
BEDSIDE REPORT GIVEN TO KOURTNEY MOYA AND PATIENT CARE TRANSFERED AT THIS TIME.
[2020-01-11] MEDS: IBUPROFEN 800 MG TAB PO SCH ×4 (00:41→22:31)
[2020-01-11] MEDS: CLINDAMYCIN 900 MG/D5% WATER 50 ML IV SCH ×3 (02:14→17:46)
[2020-01-11 03:33] VITALS: BP 95/48
[2020-01-11 06:36] LABS: BASOPHILS % (AUTO) 0.6 % (0.0-5.0); HEMATOCRIT 23.8 % (36-48); LYMPHOCYTES % (AUTO) 43.4 % (21.0-51.0); MEAN CORPUSCULAR HEMOGLOBIN 26.4 pg (27.0-33.0); MEAN CORPUSCULAR HGB CONC 32.4 g/dL (32.0-36.0); MEAN CORPUSCULAR VOLUME 81.5 fL (80-100); NEUTROPHILS % (AUTO) 40.2 % (40.0-77.0); PLATELET COUNT (AUTO) 332 K/uL (130-400); RED BLOOD CELL COUNT(AUTO) 2.92 MIL/uL (4.00-5.50); RED CELL DISTRIBUTION WIDTH 18.9 % (11.0-15.5); WHITE BLOOD COUNT (AUTO) 4.8 K/uL (4.8-10.8)
[2020-01-11 06:51] LABS: BILIRUBIN,TOTAL 0.1 mg/dL (0.2-1.0); CREATININE 0.7 mg/dL (0.5-1.5); POTASSIUM 3.3 mmol/L (3.5-5.1); TOTAL PROTEIN, SERUM 5.3 g/dL (6.0-8.3)
[2020-01-11 07:30] VITALS: BP 88/45
[2020-01-11] MEDS: SIMETHICONE 80 MG TAB.CHEW PO PRN ×3 (07:50→20:09)
[2020-01-11] MEDS: CEFTRIAXONE SODIUM 1 GM IV SCH (07:50)
[2020-01-11] MEDS: POTASSIUM CHLORIDE 20 MEQ ERTAB PO PRN ×3 (07:51→14:56)
[2020-01-11] MEDS: DOCUSATE SODIUM 100 MG CAP PO PRN ×2 (07:51→20:09)
[2020-01-11] MEDS: PHENAZOPYRIDINE HCL 200 MG TABLET PO SCH ×3 (10:39→20:09)
[2020-01-11 11:03] VITALS: BP 83/46
[2020-01-11 16:13] VITALS: BP 89/52
--- NOTE | 2020-01-11 18:40 | NUR ---
PT AMBULATED IN HALLWAY FOR 30 MINUTES, WELL TOLERATED.
--- NOTE | 2020-01-11 19:20 | NUR ---
1 ML SEROSANG DRAINAGE NOTED IN SOLIS. NO CLOTS NOTED.
[2020-01-11 19:30] VITALS: BP 91/53
[2020-01-11 23:08] VITALS: BP 95/57
[2020-01-12] MEDS: CLINDAMYCIN 900 MG/D5% WATER 50 ML IV SCH ×2 (02:30→10:18)
[2020-01-12] MEDS: DEXTROSE 5 %-0.45 % NACL 1,000 ML IV SCH ×2 (02:34→02:37)
[2020-01-12 03:16] VITALS: BP 88/47
[2020-01-12] MEDS: IBUPROFEN 800 MG TAB PO SCH ×2 (04:31→10:18)
--- NOTE | 2020-01-12 06:00 | NUR ---
NO VAGINAL BLEEDING NOTED ALL SHIFT.
[2020-01-12 07:33] VITALS: BP 90/52
--- NOTE | 2020-01-12 09:00 | NUR ---
DR. COREY ROUNDING ON PATIENT. DISCHARGE POC RECEIVED. PATIENT TO BE DISCHARGED WITH PATENT IV SITE TO CONTINUE WITH ROCEPHIN FOR 5 DAYS.
[2020-01-12] MEDS: CEFTRIAXONE SODIUM 1 GM IV SCH (09:17)
[2020-01-12] MEDS: PHENAZOPYRIDINE HCL 200 MG TABLET PO SCH (09:17)
--- NOTE | 2020-01-12 09:25 | NUR ---
SOLIS DRAIN DISCONTINUED AT THIS TIME. 5ML OF SEROSANGUINEOUS FLUID EMPTIED. PATIENT TOLERATED WELL. GAUZE APPLIED TO SITE.
[2020-01-12 11:32] VITALS: BP 124/62
--- NOTE | 2020-01-12 13:20 | NUR ---
CM NOTE PER DR. COREY, PATIENT TO CONTINUE ROCEPHIN 1 GM IVP QD X5 DAYS STARING ON 01/13/2020. PER CM DIRECTOR, PATIENT APPROVED FOR INFUSION WITH [facility] D/T UNINSURED. PER PHARMACY, MEDICATION AVAILABLE AND PER WOUND CARE CENTER, APPOINTMENT WITH PATIENT AT 11AM ON 01/13/2020 FOR INFUSION. APPOINTMENT DATE AND TIME AND INSTRUCTIONS GIVEN TO PRIMARY NURSE, GÉNESIS OCONNELL. PATIENT TO BE DISCHARGED HOME TODAY.
--- NOTE | 2020-01-12 14:50 | NUR ---
DR. COREY INFORMED THAT RX FOR CLINDAMYCIN WAS NOT IN CHART. RX FOR CLINDAMYCIN, TYLENOL #3, MOTRIN AND SURFAK CALLED IN TO [facility] IN [place], [place] BY LAURIE AT DR. COREY'S OFFICE
--- NOTE | 2020-01-12 15:50 | NUR ---
PATIENT LEFT UNIT VIA WHEELCHAIR WITH BELONGINGS IN HAND. 22GTO L WRIST PATENT AND SECURED TO PATIENT. PATIENT VOICED UNDERSTANDING TO RETURN TO ER 01/13/20 AT 1100 TO CONTINUE WITH ROCEPHIN TREATMENT ORDERED.
== END 2020-01-12 15:50 | disposition home or self-care (01) | DRG 769 ==
LOC: EDH 12:21 → EDHIP 12:22 → WSH 16:30
PROC: 0UQ90ZZ Repair Uterus, Open Approach (ICD-10-PCS; 2020-01-08)
PROC: 30233R1 Transfusion of Nonautologous Platelets into Peripheral Vein, Percutaneous Approach (ICD-10-PCS; 2020-01-08)
PROC: 30233N1 Transfusion of Nonautologous Red Blood Cells into Peripheral Vein, Percutaneous Approach (ICD-10-PCS; 2020-01-08)
PROC: 0UDB7ZZ Extraction of Endometrium, Via Natural or Artificial Opening (ICD-10-PCS; principal; 2020-01-08 13:05)
PROC: 0UJD0ZZ Inspection of Uterus and Cervix, Open Approach (ICD-10-PCS; 2020-01-08 13:05)
DX: O72.1 Other immediate postpartum hemorrhage (principal); D62 Acute posthemorrhagic anemia; O90.81 Anemia of the puerperium
CPT/HCPCS: 36415; 36600; 80053; 80305; 81001; 82435; 82803; 82947; 83605; 84132; 84295; 85018; 85025; 85027; 85610; 85730; 86850; 86900; 86901; 86922; 87040; 87088; A4344; A4351; G0378; J0330; J0696; J2001; J2175; J2250; J2370; J2405; J2550; J2590; J2704; J2710; J3010; J3490; J7030; P9016; P9034

== ENCOUNTER 2022-11-25 11:10 | Emergency (ER) | payer OTHER ==
[~2022-11-25] VITALS: Ht 157.5 cm; Wt 59.0 kg
[2022-11-25 11:36] LABS: APPEARANCE,URINE CLEAR (CLEAR); BILIRUBIN,URINE NEGATIVE (NEGATIVE); COLOR,URINE LIGHT-YELLOW (YELLOW); GLUCOSE, URINE (UA) NEGATIVE (NEGATIVE); KETONES,URINE NEGATIVE (NEGATIVE); LEUKOCYTE ESTERASE ,URINE NEGATIVE Leu/uL (NEGATIVE); NITRATE,URINE NEGATIVE (NEGATIVE); OCCULT BLOOD,URINE SMALL (NEGATIVE); PROTEIN,URINE NEGATIVE (NEGATIVE); UROBILINOGEN,URINE 0.2 mg/dL (0.2-1.0)
[2022-11-25 11:39] LABS: HCG,QUALITATIVE URINE NEGATIVE (NEGATIVE)
[2022-11-25 11:44] LABS: BACTERIA,URINE Rare /HPF (None Seen); SQUAMOUS EPITHELIAL CELL,UR 0-2 /HPF (0-2); WBC,URINE 0-1 /HPF (0-1)
[2022-11-25 12:06] LABS: BASOPHILS % (AUTO) 0.6 % (0.0-5.0); EOSINOPHILS % (AUTO) 1.1 % (0.0-8.0); LYMPHOCYTES % (AUTO) 35.6 % (21.0-51.0); MEAN CORPUSCULAR HEMOGLOBIN 25.6 pg (27.0-33.0); MEAN CORPUSCULAR HGB CONC 32.2 g/dL (32.0-36.0); MEAN CORPUSCULAR VOLUME 79.6 fL (79-99); MONOCYTES % (AUTO) 8.2 % (3.0-13.0); NEUTROPHILS % (AUTO) 53.9 % (40.0-77.0); PLATELET COUNT (AUTO) 470 K/uL (130-400); RED BLOOD CELL COUNT(AUTO) 4.02 MIL/uL (4.00-5.50); RED CELL DISTRIBUTION WIDTH 13.6 % (11.0-15.5); WHITE BLOOD COUNT (AUTO) 6.4 K/uL (4.8-10.8)
[2022-11-25 14:12] VITALS: BP 118/73
[2022-11-25] MEDS ORDERED: IBUPROFEN 600 MG TABLET ONE (14:19)
[2022-11-25] MEDS ORDERED: IBUPROFEN 600 MG TABLET PO ONE (14:30)
== END 2022-11-25 14:18 | disposition home or self-care (01) ==
LOC: EDH 11:10
DX: N83.201 Unspecified ovarian cyst, right side (principal); N93.9 Abnormal uterine and vaginal bleeding, unspecified; Z98.890 Other specified postprocedural states
CPT/HCPCS: 36415; 76856; 81001; 81025; 85025